=== PATIENT | male | born 1960 | race African-American/Black ===

== ENCOUNTER → 2017-03-16 | Day surgery (SDC) | payer MEDICARE, MEDICAID ==
[~2017-03-16] MED LIST: DOCU100C33 PO; HEPARIN 1,000 UNITS/ML, 10ML ONE; HYDROCORTISONE28 G1 PR; IBUP200T48 PO; PROTAMINE SULFATE 10 MG/ML, 5ML ONE; [UNRECOGNIZED DRUG - REMARK]
== END ==
LOC: OUT 12:12
PROVIDERS: ATTEND Surgery Vascular Surgery
DX: Z02.9 Encounter for administrative examinations, unspecified (principal)
CPT/HCPCS: J1644; J2720

== ENCOUNTER 2017-05-11 08:28 | Observation (INO) | payer MEDICARE, MEDICAID ==
[~2017-05-11] VITALS: Ht 170.2 cm; Wt 70.7 kg
[~2017-05-11 08:28] MED LIST changes: -IBUP200T48 PO; +IBUP200T49 PO; -PROTAMINE SULFATE 10 MG/ML, 5ML ONE
[2017-05-11] MEDS ORDERED: NILO150C PO (09:34)
[2017-05-11] MEDS ORDERED: cytomel PO (09:34)
[2017-05-11] MEDS ORDERED: prilosec PO (09:34)
[2017-05-11] MEDS ORDERED: CLONIDINE TTS (09:34)
[2017-05-11] MEDS ORDERED: renagel PO (09:34)
[2017-05-11] MEDS ORDERED: METO25TA35 PO (09:34)
[2017-05-11] MEDS ORDERED: OXYC-306 PO (09:34)
[2017-05-11 09:39] VITALS: BP 130/79
[2017-05-11] MEDS: SODIUM CHLORIDE 0.9% 1,000 ML IV SCH ×2 (10:02→22:57)
[2017-05-11] MEDS ORDERED: FENTANYL PF 100 MCG/2ML ONE ×2 (10:54→16:13)
[2017-05-11] MEDS ORDERED: MIDAZOLAM 1 MG/ML, 2ML ONE (10:54)
[2017-05-11] MEDS ORDERED: OXYcodone IR 5MG TABLET PO STA (11:49)
[2017-05-11] MEDS ORDERED: ONDANSETRON 2MG/ML, 2ML IVPush STA (11:49)
[2017-05-11] MEDS ORDERED: ONDANSETRON 2MG/ML, 2ML ONE ×2 (11:53→11:56)
[2017-05-11] MEDS ORDERED: PROPOFOL 10 MG/ML, 20ML ONE (11:56)
[2017-05-11] MEDS ORDERED: DEXAMETHASONE 4 MG/ML, 1ML ONE (11:56)
[2017-05-11] MEDS ORDERED: CEFAZOLIN 1,000 MG ONE (11:56)
[2017-05-11] MEDS ORDERED: ALBUTEROL/IPRATROPIUM 2.5MG/0.5MG, 3 ML NPPB PRN (15:00)
[2017-05-11] MEDS ORDERED: PROMETHAZINE 25 MG/ML, 1ML IV PRN (15:00)
[2017-05-11] MEDS ORDERED: ACETAMINOPHEN 325 MG TABLET PO PRN (15:00)
[2017-05-11] MEDS ORDERED: MEPERIDINE/PF 25MG/0.5ML IVPush PRN (15:00)
[2017-05-11] MEDS ORDERED: ONDANSETRON 2MG/ML, 2ML IVPush PRN (15:00)
[2017-05-11] MEDS ORDERED: OXYcodone 5 MG/5 ML ORAL.SOL UDC PO PRN (15:00)
[2017-05-11] MEDS ORDERED: hydrALAzine 20 MG/ML, 1ML IV PRN (15:00)
[2017-05-11] MEDS ORDERED: HYDROmorphone 1 MG/ML, 1ML IV PRN (15:00)
[2017-05-11] MEDS ORDERED: METOCLOPRAMIDE 5 MG/ML, 2ML IV PRN (15:00)
[2017-05-11] MEDS ORDERED: MIDAZOLAM 1 MG/ML, 2ML IV PRN (15:00)
[2017-05-11] MEDS ORDERED: LABETALOL 5MG/ML, 20ML IV PRN (15:00)
[2017-05-11] MEDS ORDERED: FENTANYL PF 100 MCG/2ML IV PRN (15:00)
[2017-05-11] MEDS ORDERED: DIAZEPAM 5 MG/ML, 2ML IVPush PRN (15:00)
[2017-05-11] MEDS ORDERED: hydrALAzine 20 MG/ML, 1ML ONE ×2 (15:41→18:08)
[2017-05-11] MEDS ORDERED: ACETAMINOPHEN 650 MG/20.3 ML UDC ONE (15:51)
[2017-05-11] MEDS ORDERED: OXYcodone 5 MG/5 ML ORAL.SOL UDC ONE ×2 (15:52→16:53)
[2017-05-11] MEDS ORDERED: PROTAMINE SULFATE 10 MG/ML, 5ML IVPush STA (18:05)
[2017-05-11] MEDS ORDERED: LABETALOL 5MG/ML, 20ML IVPush STA (18:21)
[2017-05-11] MEDS ORDERED: LABETALOL 5MG/ML, 20ML ONE (18:23)
[2017-05-11] MEDS ORDERED: hydrALAzine 20 MG/ML, 1ML IV ONE ×2 (18:30→21:30)
[2017-05-11] MEDS ORDERED: PROTAMINE SULFATE IV ONE (18:30)
[2017-05-11] MEDS ORDERED: SODIUM CHLORIDE 0.9% IV ONE (18:30)
[2017-05-11] MEDS ORDERED: morphine SULFATE 10 MG/ML, 1ML IVPush PRN (20:00)
[2017-05-11] MEDS ORDERED: morphine SULFATE 10 MG/ML, 1ML IVPush ONE (20:00)
[2017-05-11] MEDS ORDERED: DIPHENHYDRAMINE 50 MG/ML, 1ML IVPush ONE (21:30)
[2017-05-11 21:50] VITALS: BP 205/99
[2017-05-11 22:41] VITALS: BP 178/87
[2017-05-11 23:18] LABS: FREE T4 (FREE THYROXINE) 0.87 ng/dL (0.76-1.46); THYROID STIMULATING HORMONE 2.34 mIU/L (0.358-3.740)
[2017-05-12] MEDS ORDERED: SEVELAMER 800MG TABLET PO PRN (02:00)
[2017-05-12] MEDS: METOPROLOL TARTRATE 25 MG TABLET PO SCH ×2 (02:33→07:31)
[2017-05-12] MEDS ORDERED: DIPHENHYDRAMINE 50 MG/ML, 1ML IVPush ONE (03:00)
[2017-05-12 03:06] VITALS: BP 209/87
[2017-05-12] MEDS: hydrALAzine 20 MG/ML, 1ML IV PRN ×2 (03:08→07:31)
[2017-05-12] MEDS: CALCIUM CARBONATE 500 MG TAB.CHEW PO PRN ×2 (03:18→06:35)
[2017-05-12 03:42] VITALS: BP 209/93
[2017-05-12 04:11] VITALS: BP 185/87
[2017-05-12 05:24] LABS: CALCIUM 8.5 mg/dL (8.5-10.1); CHLORIDE 103 mmol/L (98-107)
[2017-05-12 05:29] LABS: ALANINE AMINOTRANSFERASE 13 U/L (12-78); ALBUMIN 3.5 g/dL (3.4-5.0); ALKALINE PHOSPHATASE 151 U/L (45-117); ANION GAP 11 mmol/L (5-15); BILIRUBIN,TOTAL 0.9 mg/dL (0.2-1.0)
[2017-05-12 05:40] LABS: MEAN CORPUSCULAR HGB CONC 32.8 g/dL (33.2-36.2); MEAN CORPUSCULAR VOLUME 97.6 fL (81-97); MEAN PLATELET VOLUME 9.5 fL (7.4-10.4); PLATELET COUNT 251 x10^3/uL (130-400); RED BLOOD COUNT 3.57 x10^6/uL (4.38-5.82)
[2017-05-12 06:03] LABS: BASOPHILS % (AUTO) 1 % (0-1); EOSINOPHILS % (AUTO) 0 % (1-7); LYMPHOCYTES # (AUTO) 0.98 x10^3/uL (1-3.4); LYMPHOCYTES % (AUTO) 9 % (22-44); MD SCAN; MONOCYTES # (AUTO) 0.67 x10^3/uL (0.2-0.8); MONOCYTES % (AUTO) 6 % (2-9); NEUTROPHILS # (AUTO) 8.74 x10^3/uL (1.8-6.8); NEUTROPHILS % (AUTO) 83 % (42-75)
[2017-05-12] MEDS ORDERED: NILOTINIB HCL 150 MG PO SCH (07:00)
[2017-05-12 07:04] VITALS: BP 218/82
[2017-05-12] MEDS ORDERED: OMEPRAZOLE 20 MG CAPSULE.DR PO SCH (07:30)
[2017-05-12] MEDS: SEVELAMER 800MG TABLET PO SCH ×2 (07:32→11:25)
[2017-05-12] MEDS ORDERED: METOPROLOL TARTRATE 25 MG TABLET PO SCH (09:00)
[2017-05-12] MEDS ORDERED: LABETALOL 5MG/ML, 20ML IVPush PRN (09:30)
[2017-05-12] MEDS ORDERED: LABE200T3 PO (09:54)
[2017-05-12] MEDS ORDERED: BUDE10.22 INH (09:55)
[2017-05-12] MEDS ORDERED: AMLO10TA4 PO ×2 (09:56→12:38)
[2017-05-12] MEDS ORDERED: LABETALOL 100 MG TABLET ONE (10:23)
[2017-05-12 10:28] VITALS: BP 149/74
[2017-05-12] MEDS ORDERED: AMLODIPINE 5 MG TABLET PO SCH (10:30)
[2017-05-12] MEDS ORDERED: cloniDINE 0.1MG PATCH TD SCH (10:30)
[2017-05-12] MEDS ORDERED: LABETALOL 200 MG TABLET PO SCH (10:30)
[2017-05-12 14:30] VITALS: BP 148/76
== END 2017-05-12 14:35 | disposition home or self-care (01) ==
LOC: OUT 08:28 → 4NOR 19:02 → OUT 21:28 → 4NOR 21:29 → DCLOUNGE 05-12 14:32
PROVIDERS: ADMIT Surgery Vascular Surgery; ATTEND Surgery Vascular Surgery
DX: N19 Unspecified kidney failure (principal); I12.0 Hypertensive chronic kidney disease with stage 5 chronic kidney disease or end stage renal disease; N18.6 End stage renal disease; K21.9 Gastro-esophageal reflux disease without esophagitis; E03.9 Hypothyroidism, unspecified; F40.240 Claustrophobia; H40.9 Unspecified glaucoma; F41.9 Anxiety disorder, unspecified; Z99.2 Dependence on renal dialysis; Z82.3 Family history of stroke; Z82.49 Family history of ischemic heart disease and other diseases of the circulatory system; Z83.3 Family history of diabetes mellitus
CPT/HCPCS: 36415; 36818; 80047; 80053; 84439; 84443; 84481; 85025; 96374; 96375; 96376; G0378; J0360; J0690; J1100; J1200; J1644; J2250; J2270; J2405; J2704; J2720; J3010; J7030

== ENCOUNTER 2017-05-17 04:37 | Inpatient (IN) | payer MEDICARE, MEDICAID ==
[~2017-05-17] VITALS: Ht 170.2 cm; Wt 73.8 kg
[~2017-05-17 04:37] MED LIST changes: +AMLO10TA4 PO; +BUDE10.22 INH; +CLONIDINE TTS; -HEPARIN 1,000 UNITS/ML, 10ML ONE; +LABE200T3 PO; +METO25TA35 PO; +NILO150C PO; +OXYC-306 PO; +cytomel PO; +prilosec PO; +renagel PO
[2017-05-17] MEDS ORDERED: HALOPERIDOL 5 MG/ML ONE (05:16)
[2017-05-17] MEDS ORDERED: LORazepam 2 MG/ML, 1ML ONE (05:16)
[2017-05-17] MEDS ORDERED: LORazepam 2 MG/ML, 1ML IVPush ONE (05:30)
[2017-05-17] MEDS ORDERED: HALOPERIDOL 5 MG/ML IM ONE (05:30)
[2017-05-17] MEDS ORDERED: SODIUM CHLORIDE FLUSH 10ML SYR IVF ONE (05:30)
[2017-05-17] MEDS ORDERED: MORPHINE SULFATE 4 MG/ML, 1ML ONE ×2 (05:37→08:38)
[2017-05-17] MEDS: MORPHINE SULFATE 4 MG/ML, 1ML IVPush ONE ×2 (05:40→05:43)
[2017-05-17 06:01] LABS: MEAN CORPUSCULAR HEMOGLOBIN 32.4 pg (27.5-34.5); MEAN CORPUSCULAR HGB CONC 32.9 g/dL (33.2-36.2); MEAN CORPUSCULAR VOLUME 98.6 fL (81-97); MEAN PLATELET VOLUME 8.9 fL (7.4-10.4); PLATELET COUNT 216 x10^3/uL (130-400); RED BLOOD COUNT 3.08 x10^6/uL (4.38-5.82); RED CELL DISTRIBUTION WIDTH 20.6 % (9.4-14.8)
[2017-05-17] MEDS ORDERED: hydrALAzine 20 MG/ML, 1ML ONE ×2 (06:05→06:59)
[2017-05-17 06:07] LABS: INTERNATIONAL NORMALIZED RATIO 1.06 (0.93-1.1); PROTHROMBIN TIME 10.9 Seconds (9.6-11.5)
[2017-05-17] MEDS: hydrALAzine 20 MG/ML, 1ML IV ONE ×2 (06:08→07:02)
[2017-05-17 06:10] LABS: ANION GAP 10 mmol/L (5-15); CALCIUM 8.7 mg/dL (8.5-10.1); CHLORIDE 104 mmol/L (98-107)
[2017-05-17 06:30] LABS: TROPONIN I 0.103 ng/mL (0.000-0.045)
[2017-05-17] MEDS ORDERED: hydrALAzine 20 MG/ML, 1ML IV ONE ×2 (06:30→11:00)
[2017-05-17 06:31] LABS: BASOPHILS # (AUTO) 0.19 x10^3/uL (0-0.1); BASOPHILS % (AUTO) 2 % (0-1); EOSINOPHILS # (AUTO) 0.18 x10^3/uL (0-0.4); EOSINOPHILS % (AUTO) 2 % (1-7); LYMPHOCYTES # (AUTO) 0.83 x10^3/uL (1-3.4); LYMPHOCYTES % (AUTO) 7 % (22-44); MD SCAN; MONOCYTES # (AUTO) 0.59 x10^3/uL (0.2-0.8); MONOCYTES % (AUTO) 5 % (2-9); NEUTROPHILS # (AUTO) 10.13 x10^3/uL (1.8-6.8); NEUTROPHILS % (AUTO) 85 % (42-75)
[2017-05-17] MEDS ORDERED: LABETALOL 5MG/ML, 20ML IVPush ONE (07:30)
[2017-05-17] MEDS ORDERED: LABETALOL 5MG/ML, 20ML ONE (07:33)
[2017-05-17] MEDS ORDERED: CLEVIDIPINE 50 ML IV PRN (08:30)
[2017-05-17] MEDS ORDERED: HYDROmorphone 2 MG/ML, 1ML ONE (09:09)
[2017-05-17] MEDS ORDERED: HYDROmorphone 2 MG/ML, 1ML IVPush PRN (09:30)
[2017-05-17] MEDS ORDERED: HYDROmorphone 1 MG/ML, 1ML IVPush PRN (09:30)
[2017-05-17] MEDS ORDERED: AMPICILLIN/SULBACTAM 3 GM in SODIUM CHLORIDE 0.9% 100 ML IV ONE (09:30)
[2017-05-17] MEDS ORDERED: POLYETHYLENE GLYCOL 17 GM PACKET PO PRN (10:00)
[2017-05-17] MEDS ORDERED: RENAGEL PO SCH (10:00)
[2017-05-17] MEDS ORDERED: OXYcodone/APAP 7.5/325MG TABLET PO PRN (10:00)
[2017-05-17] MEDS ORDERED: TEMAZEPAM 15 MG CAPSULE PO PRN (10:00)
[2017-05-17] MEDS ORDERED: ONDANSETRON 2MG/ML, 2ML IVPush PRN (10:00)
[2017-05-17] MEDS: NILOTINIB HCL 150 MG PO SCH (10:00)
[2017-05-17] MEDS ORDERED: LABETALOL 100 MG TABLET ONE (10:56)
[2017-05-17] MEDS: HEPARIN 5,000 UNITS/ML, 1ML SQ SCH ×2 (11:01→17:41)
[2017-05-17] MEDS: AMLODIPINE 5 MG TABLET PO SCH (11:02)
[2017-05-17] MEDS: LABETALOL 200 MG TABLET PO SCH ×2 (11:02→20:57)
[2017-05-17 11:15] VITALS: BP 227/84
[2017-05-17] MEDS ORDERED: RENAGEL MC SCH (11:30)
[2017-05-17] MEDS: FLUTICASONE/VILANTEROL 100-25MCG/INH INH SCH (12:38)
[2017-05-17] MEDS: SEVELAMER 800MG TABLET PO SCH ×2 (12:38→16:38)
[2017-05-17] MEDS: ACETAMINOPHEN 325 MG TABLET PO PRN ×2 (15:05→19:11)
[2017-05-17] MEDS: DOXAZOSIN 2MG TABLET PO SCH (15:06)
[2017-05-17] MEDS: CALCIUM CARBONATE 500 MG TAB.CHEW PO PRN ×2 (16:38→19:11)
[2017-05-17] MEDS: hydrALAzine 20 MG/ML, 1ML IV PRN ×2 (16:38→19:11)
[2017-05-17] MEDS: ENALAPRILAT 1.25 MG/ML, 2ML IV PRN ×2 (18:22→22:52)
[2017-05-18] MEDS: hydrALAzine 20 MG/ML, 1ML IV PRN ×2 (00:11→04:08)
[2017-05-18] MEDS: HEPARIN 5,000 UNITS/ML, 1ML SQ SCH ×3 (02:30→19:30)
[2017-05-18] MEDS: ACETAMINOPHEN 325 MG TABLET PO PRN ×3 (02:30→19:27)
[2017-05-18] MEDS: CALCIUM CARBONATE 500 MG TAB.CHEW PO PRN ×3 (02:33→19:26)
[2017-05-18 04:36] VITALS: BP 198/78
[2017-05-18] MEDS: ENALAPRILAT 1.25 MG/ML, 2ML IV PRN (05:05)
[2017-05-18 05:07] LABS: CHLORIDE 103 mmol/L (98-107)
[2017-05-18 05:15] LABS: ALBUMIN 3.4 g/dL (3.4-5.0); ALKALINE PHOSPHATASE 132 U/L (45-117); ANION GAP 12 mmol/L (5-15); CALCIUM 8.5 mg/dL (8.5-10.1); MEAN CORPUSCULAR HEMOGLOBIN 32.1 pg (27.5-34.5); MEAN CORPUSCULAR HGB CONC 32.9 g/dL (33.2-36.2); MEAN CORPUSCULAR VOLUME 97.7 fL (81-97); MEAN PLATELET VOLUME 8.8 fL (7.4-10.4); PLATELET COUNT 209 x10^3/uL (130-400); RED BLOOD COUNT 3.14 x10^6/uL (4.38-5.82); RED CELL DISTRIBUTION WIDTH 20.8 % (9.4-14.8); TOTAL PROTEIN 6.7 g/dL (6.4-8.2)
[2017-05-18 05:18] LABS: ALANINE AMINOTRANSFERASE < 6 U/L (12-78)
[2017-05-18 05:45] LABS: BASOPHILS # (AUTO) 0.12 x10^3/uL (0-0.1); BASOPHILS % (AUTO) 1 % (0-1); EOSINOPHILS # (AUTO) 0.06 x10^3/uL (0-0.4); EOSINOPHILS % (AUTO) 1 % (1-7); LYMPHOCYTES # (AUTO) 0.87 x10^3/uL (1-3.4); LYMPHOCYTES % (AUTO) 10 % (22-44); MD SCAN; MONOCYTES # (AUTO) 0.64 x10^3/uL (0.2-0.8); MONOCYTES % (AUTO) 7 % (2-9); NEUTROPHILS # (AUTO) 7.09 x10^3/uL (1.8-6.8); NEUTROPHILS % (AUTO) 81 % (42-75)
[2017-05-18] MEDS: SEVELAMER 800MG TABLET PO SCH ×3 (08:24→18:23)
[2017-05-18] MEDS: SENNA/DOCUSATE TABLET PO SCH (10:24)
[2017-05-18] MEDS: AMLODIPINE 5 MG TABLET PO SCH (10:24)
[2017-05-18] MEDS: DOXAZOSIN 2MG TABLET PO SCH (10:25)
[2017-05-18] MEDS: LABETALOL 200 MG TABLET PO SCH ×2 (10:25→19:26)
[2017-05-18] MEDS ORDERED: KETOROLAC 30 MG/1 ML IM PRN (11:00)
[2017-05-18] MEDS: FLUTICASONE/VILANTEROL 100-25MCG/INH INH SCH (12:29)
[2017-05-18] MEDS: NILOTINIB HCL 150 MG PO SCH (19:26)
[2017-05-19 01:00] VITALS: BP 143/60
[2017-05-19] MEDS: SEVELAMER 800MG TABLET PO SCH ×2 (01:43→16:38)
[2017-05-19] MEDS: CALCIUM CARBONATE 500 MG TAB.CHEW PO PRN ×2 (03:35→13:50)
[2017-05-19] MEDS: HEPARIN 5,000 UNITS/ML, 1ML SQ SCH ×2 (03:38→12:00)
[2017-05-19 07:05] LABS: BASOPHILS # (AUTO) 0.11 x10^3/uL (0-0.1); BASOPHILS % (AUTO) 2 % (0-1); EOSINOPHILS # (AUTO) 0.09 x10^3/uL (0-0.4); EOSINOPHILS % (AUTO) 1 % (1-7); LYMPHOCYTES % (AUTO) 15 % (22-44); MD NO; MEAN CORPUSCULAR HEMOGLOBIN 32.8 pg (27.5-34.5); MEAN CORPUSCULAR HGB CONC 33.5 g/dL (33.2-36.2); MEAN CORPUSCULAR VOLUME 97.9 fL (81-97); MEAN PLATELET VOLUME 8.6 fL (7.4-10.4); MONOCYTES # (AUTO) 0.72 x10^3/uL (0.2-0.8); MONOCYTES % (AUTO) 11 % (2-9); NEUTROPHILS # (AUTO) 4.94 x10^3/uL (1.8-6.8); NEUTROPHILS % (AUTO) 72 % (42-75); PLATELET COUNT 188 x10^3/uL (130-400); RED BLOOD COUNT 2.86 x10^6/uL (4.38-5.82); RED CELL DISTRIBUTION WIDTH 21.1 % (9.4-14.8)
[2017-05-19 07:17] LABS: % IRON SATURATION 35 % (20-55); ALBUMIN 3.1 g/dL (3.4-5.0); ANION GAP 8 mmol/L (5-15); CALCIUM 8.3 mg/dL (8.5-10.1); CHLORIDE 98 mmol/L (98-107); CREATININE 9.82 mg/dL (0.7-1.3); IRON LEVEL 62 mcg/dL (65-175); TOTAL IRON BINDING CAPACITY 177 mcg/dL (250-450)
[2017-05-19 08:15] VITALS: BP 200/94
[2017-05-19] MEDS: NILOTINIB HCL 150 MG PO SCH (09:00)
[2017-05-19] MEDS: AMLODIPINE 5 MG TABLET PO SCH (09:16)
[2017-05-19] MEDS: LABETALOL 200 MG TABLET PO SCH (09:16)
[2017-05-19] MEDS: FLUTICASONE/VILANTEROL 100-25MCG/INH INH SCH (09:16)
[2017-05-19] MEDS: DOXAZOSIN 2MG TABLET PO SCH (09:17)
[2017-05-19] MEDS: SENNA/DOCUSATE TABLET PO SCH (09:17)
[2017-05-19 10:05] VITALS: BP 173/79
[2017-05-19 13:10] VITALS: BP 152/72
[2017-05-19] MEDS ORDERED: DOXA2TAB9 PO (16:20)
[2017-05-19] MEDS ORDERED: HYDR-3342 PO (16:20)
== END 2017-05-19 18:08 | disposition home or self-care (01) | DRG 871 ==
LOC: ED 06:31 → EDIP 09:14 → CCU 10:45 → 4WST 05-19 08:06
PROVIDERS: ADMIT Internal Medicine; ATTEND Internal Medicine
PROC: 02HV33Z Insertion of Infusion Device into Superior Vena Cava, Percutaneous Approach (ICD-10-PCS; 2017-05-17)
PROC: B548ZZA Ultrasonography of Superior Vena Cava, Guidance (ICD-10-PCS; 2017-05-17)
PROC: 5A1D70Z Performance of Urinary Filtration, Intermittent, Less than 6 Hours Per Day (ICD-10-PCS; principal; 2017-05-19)
DX: A41.9 Sepsis, unspecified organism (principal); N18.6 End stage renal disease; C92.10 Chronic myeloid leukemia, BCR/ABL-positive, not having achieved remission; I12.0 Hypertensive chronic kidney disease with stage 5 chronic kidney disease or end stage renal disease; E87.70 Fluid overload, unspecified; L03.113 Cellulitis of right upper limb; D63.1 Anemia in chronic kidney disease; E03.9 Hypothyroidism, unspecified; F40.240 Claustrophobia; H40.9 Unspecified glaucoma; J44.9 Chronic obstructive pulmonary disease, unspecified; I51.7 Cardiomegaly; K21.9 Gastro-esophageal reflux disease without esophagitis; N25.0 Renal osteodystrophy; Z82.3 Family history of stroke; Z82.49 Family history of ischemic heart disease and other diseases of the circulatory system; Z91.14 Patient's other noncompliance with medication regimen; Z83.3 Family history of diabetes mellitus; Z99.2 Dependence on renal dialysis; Z91.19 Patient's noncompliance with other medical treatment and regimen
CPT/HCPCS: 36415; 71045; 80048; 80053; 80069; 80344; 82040; 82306; 82728; 83540; 83550; 83605; 83735; 83880; 83970; 84100; 84443; 84484; 85025; 85610; 86705; 86706; 87040; 87081; 87340; 93005; 93926; 93990; J0295; J1170; J1644; J0360; J1630; J2060; J7050

== ENCOUNTER 2017-10-14 23:44 | Emergency (ER) | payer MEDICARE, MEDICAID ==
[~2017-10-14] VITALS: Ht 170.2 cm; Wt 70.0 kg
[~2017-10-14 23:44] MED LIST changes: +DOXA2TAB9 PO; +HYDR-3342 PO
[2017-10-15 00:27] LABS: BASOPHILS # (AUTO) 0.19 x10^3/uL (0-0.1); BASOPHILS % (AUTO) 3 % (0-1); EOSINOPHILS # (AUTO) 0.17 x10^3/uL (0-0.4); EOSINOPHILS % (AUTO) 3 % (1-7); LYMPHOCYTES # (AUTO) 0.78 x10^3/uL (1-3.4); LYMPHOCYTES % (AUTO) 11 % (22-44); MD NO; MEAN CORPUSCULAR HGB CONC 32.9 g/dL (33.2-36.2); MEAN CORPUSCULAR VOLUME 97.3 fL (81-97); MEAN PLATELET VOLUME 9.4 fL (7.4-10.4); MONOCYTES # (AUTO) 0.57 x10^3/uL (0.2-0.8); MONOCYTES % (AUTO) 8 % (2-9); NEUTROPHILS # (AUTO) 5.14 x10^3/uL (1.8-6.8); NEUTROPHILS % (AUTO) 75 % (42-75); PLATELET COUNT 214 x10^3/uL (130-400); RED BLOOD COUNT 3.61 x10^6/uL (4.38-5.82); RED CELL DISTRIBUTION WIDTH 15.5 % (9.4-14.8)
[2017-10-15 00:31] LABS: ALBUMIN 3.3 g/dL (3.4-5.0); ANION GAP 7 mmol/L (5-15); CALCIUM 8.2 mg/dL (8.5-10.1); CHLORIDE 103 mmol/L (98-107); CREATININE 6.81 mg/dL (0.7-1.3)
[2017-10-15 00:48] VITALS: BP 126/62
== END 2017-10-15 01:24 | disposition home or self-care (01) ==
LOC: ED 23:59
DX: R10.33 Periumbilical pain (principal); R10.30 Lower abdominal pain, unspecified; R10.32 Left lower quadrant pain; I10 Essential (primary) hypertension
CPT/HCPCS: 36415; 80048; 82040; 85025; 99281; 99284

== ENCOUNTER → 2020-03-23 | Outpatient (CLI) | payer MEDICARE, MEDICAID ==
[~2020-03-23] MED LIST changes: -LABE200T3 PO; +LABE200T6 PO
== END | disposition home or self-care (01) ==
LOC: STAR 13:02
PROVIDERS: ATTEND Anesthesiology
DX: Z20.828 Contact with and (suspected) exposure to other viral communicable diseases (principal)
CPT/HCPCS: 87635

== ENCOUNTER 2020-03-28 14:28 | Day surgery (SDC) | payer MEDICARE, MEDICAID ==
[~2020-03-28] VITALS: Ht 170.2 cm; Wt 77.8 kg
[2020-03-28 15:08] VITALS: BP 155/79
[2020-03-28] MEDS ORDERED: CHLORHEXIDINE 15 ML UDC MM ONE (15:30)
[2020-03-28] MEDS ORDERED: LACTATED RINGERS 1,000 ML IV SCH (15:30)
[2020-03-28 16:25] LABS: MEAN CORPUSCULAR HEMOGLOBIN 28.4 pg (27.5-34.5); MEAN CORPUSCULAR HGB CONC 30.7 g/dL (33.2-36.2); MEAN PLATELET VOLUME 9.6 fL (7.4-10.4); PLATELET COUNT 199 x10^3/uL (130-400); RED BLOOD COUNT 2.61 x10^6/uL (4.38-5.82); RED CELL DISTRIBUTION WIDTH 19.5 % (9.4-14.8)
[2020-03-28 16:33] LABS: ALANINE AMINOTRANSFERASE 30 U/L (12-78); ALBUMIN 3.7 g/dL (3.4-5.0); ANION GAP 7 mmol/L (5-15); CALCIUM 7.5 mg/dL (8.5-10.1); CHLORIDE 103 mmol/L (98-107); CREATININE 8.97 mg/dL (0.7-1.3)
[2020-03-28 16:34] LABS: MD YES
[2020-03-28 16:35] LABS: ALKALINE PHOSPHATASE 119 U/L (45-117); BILIRUBIN,TOTAL 1.3 mg/dL (0.2-1.0); TOTAL PROTEIN 7.3 g/dL (6.4-8.2)
[2020-03-28] MEDS ORDERED: BUPIVACAINE/PF 0.25% ONE (17:07)
[2020-03-28] MEDS ORDERED: PROPOFOL 10 MG/ML, 20ML ONE (17:46)
[2020-03-28] MEDS ORDERED: CEFAZOLIN 1,000 MG ONE (17:46)
[2020-03-28] MEDS ORDERED: SUCCINYLCHOLINE 20 MG/ML, 10ML ONE (17:46)
[2020-03-28 17:54] LABS: BAND#(MANUAL) 6.04 x10^3/uL; BANDS%(MANUAL) 10 % (0-7); BASOS#(MANUAL) 5.44 x10^3/uL (0-0.1); BASOS% (MANUAL) 9 % (0-1); EOS#(MANUAL) 2.42 x10^3/uL (0.0-0.4); EOS% (MANUAL) 4 % (1-7); LYMPH#(MANUAL) 6.04 x10^3/uL (1-3.4); LYMPHS% (MANUAL) 10 % (22-44); METAMYELOCYTES# (MANUAL) 1.21 x10^3/uL (0-0); METAMYELOCYTES% (MANUAL) 2 % (0-1); MONOS#(MANUAL) 3.62 x10^3/uL (0.3-2.7); MONOS% (MANUAL) 6 % (2-9); SEG#(MANUAL) 34.43 x10^3/uL (1.8-6.8); SEGS% (MANUAL) 57 % (42-75)
[2020-03-28 17:55] LABS: OTHER CELLS # (MANUAL) 1.21 x10^3/uL (0-0); OTHER CELLS % (MANUAL) 2 % (0-0)
[2020-03-28] MEDS ORDERED: BUPIVACAINE 0.25% INFIL ONE (18:15)
[2020-03-28] MEDS ORDERED: DIAZEPAM 5 MG/ML, 2ML IV PRN ×2 (18:30)
[2020-03-28] MEDS ORDERED: OXYcodone 5 MG/5 ML ORAL.SOL UDC PO PRN (18:30)
[2020-03-28] MEDS ORDERED: PROMETHAZINE 25 MG/ML, 1ML IV PRN (18:30)
[2020-03-28] MEDS ORDERED: hydrALAzine 20 MG/ML, 1ML IV PRN (18:30)
[2020-03-28] MEDS ORDERED: LABETALOL 5MG/ML, 20ML IV PRN (18:30)
[2020-03-28] MEDS ORDERED: MEPERIDINE/PF 25MG/0.5ML IVPush PRN (18:30)
[2020-03-28] MEDS ORDERED: HYDROmorphone 1 MG/ML, 1ML INJ IV PRN (18:30)
[2020-03-28] MEDS ORDERED: ALBUTEROL SULFATE 2.5 MG/3 ML NPPB PRN (18:30)
[2020-03-28] MEDS ORDERED: KETOROLAC 30 MG/1 ML IV PRN ×2 (18:30)
[2020-03-28] MEDS ORDERED: ONDANSETRON 2MG/ML, 2ML IVPush PRN (18:30)
[2020-03-28] MEDS ORDERED: PROTAMINE SULFATE 10 MG/ML, 5ML ONE (19:01)
[2020-03-28] MEDS ORDERED: FENTANYL PF 100 MCG/2ML ONE (19:53)
[2020-03-28] MEDS ORDERED: OXYcodone 5 MG/5 ML ORAL.SOL UDC ONE (19:53)
[2020-03-28] MEDS: FENTANYL PF 100 MCG/2ML IV PRN ×3 (20:00→20:19)
[2020-03-28 20:04] LABS: ANISOCYTOSIS 1+; POLYCHROMASIA 1+
[2020-03-28 20:05] LABS: OVALOCYTES 1+
[2020-03-28 20:06] LABS: TEAR DROPS 1+
[2020-03-28 20:07] LABS: BASOPHILLIC STIPPLING 1+
[2020-03-28 20:08] LABS: <PLATELET ESTIMATE> ADEQUATE; <PLT MORPHOLOGY> NORMAL PLT MORPH
== END 2020-03-28 23:15 | disposition home or self-care (01) ==
LOC: OR 14:28
PROVIDERS: ATTEND Surgery
DX: I77.0 Arteriovenous fistula, acquired (principal); I12.0 Hypertensive chronic kidney disease with stage 5 chronic kidney disease or end stage renal disease; N18.6 End stage renal disease; J44.9 Chronic obstructive pulmonary disease, unspecified; Z79.891 Long term (current) use of opiate analgesic; Z79.899 Other long term (current) drug therapy; Z88.8 Allergy status to other drugs, medicaments and biological substances; Z99.81 Dependence on supplemental oxygen; Z82.49 Family history of ischemic heart disease and other diseases of the circulatory system
CPT/HCPCS: 36415; 36832; 80053; 85025; 93005; J0330; J0690; J2704; J2720; J3010

== ENCOUNTER 2020-04-01 08:53 | Emergency (ER) | payer MEDICARE, MEDICAID ==
[~2020-04-01] VITALS: Ht 170.2 cm; Wt 77.2 kg
[2020-04-01] MEDS ORDERED: MICROFIBRILLAR COLLAGEN 1 GM TP ONE ×2 (09:13→09:30)
[2020-04-01 09:44] VITALS: BP 152/80
== END 2020-04-01 09:48 | disposition home or self-care (01) ==
LOC: ED 09:31
DX: I97.89 Other postprocedural complications and disorders of the circulatory system, not elsewhere classified (principal); I10 Essential (primary) hypertension
CPT/HCPCS: 99281

== ENCOUNTER 2020-04-01 18:06 | Emergency (ER) | payer MEDICARE, MEDICAID ==
[~2020-04-01] VITALS: Ht 170.2 cm; Wt 73.3 kg
[2020-04-01] MEDS ORDERED: ONDANSETRON ODT 4 MG ONE (18:36)
[2020-04-01] MEDS ORDERED: MICROFIBRILLAR COLLAGEN 1 GM TP ONE (18:36)
[2020-04-01 18:52] LABS: MEAN CORPUSCULAR HEMOGLOBIN 29.5 pg (27.5-34.5); MEAN CORPUSCULAR HGB CONC 32.3 g/dL (33.2-36.2); PLATELET COUNT 185 x10^3/uL (130-400); RED BLOOD COUNT 2.74 x10^6/uL (4.38-5.82); RED CELL DISTRIBUTION WIDTH 19.5 % (9.4-14.8)
[2020-04-01 18:53] LABS: MD YES
[2020-04-01 18:58] LABS: INTERNATIONAL NORMALIZED RATIO 1.11 (0.93-1.1); PROTHROMBIN TIME 11.8 Seconds (9.6-11.5)
[2020-04-01 18:59] LABS: ALBUMIN 3.5 g/dL (3.4-5.0); ANION GAP 6 mmol/L (5-15); CALCIUM 6.4 mg/dL (8.5-10.1); CHLORIDE 101 mmol/L (98-107)
[2020-04-01] MEDS ORDERED: MICROFIBRILLAR COLLAGEN 0.5GM/PACK TP ONE (19:00)
[2020-04-01 19:34] LABS: BAND#(MANUAL) 5.81 x10^3/uL; BANDS%(MANUAL) 16 % (0-7); BASOS#(MANUAL) 2.54 x10^3/uL (0-0.1); BASOS% (MANUAL) 7 % (0-1); LYMPH#(MANUAL) 1.45 x10^3/uL (1-3.4); LYMPHS% (MANUAL) 4 % (22-44); METAMYELOCYTES# (MANUAL) 1.09 x10^3/uL (0-0); METAMYELOCYTES% (MANUAL) 3 % (0-1); MONOS#(MANUAL) 2.18 x10^3/uL (0.3-2.7); MONOS% (MANUAL) 6 % (2-9); MYELOCYTES# (MANUAL) 2.54 x10^3/uL (0-0); MYELOCYTES% (MANUAL) 7 % (0-0); SEGS% (MANUAL) 54 % (42-75)
[2020-04-01 19:39] LABS: BLASTS # (MANUAL) 1.09 x10^3/uL (0-0); BLASTS % (MANUAL) 3 % (0-0)
[2020-04-01 19:40] LABS: OVALOCYTES 1+; POLYCHROMASIA 1+
[2020-04-01 19:41] VITALS: BP 163/91
[2020-04-01 19:41] LABS: <PLATELET ESTIMATE> ADEQUATE; <PLT MORPHOLOGY> NORMAL PLT MORPH; TEAR DROPS 1+
--- NOTE | 2020-04-01 19:42 | NUR ---
Patient given discharge instructions and they have confirmed that they understand the instructions. Patient stable and ambulatory with steady gait from ED.
== END 2020-04-01 19:43 | disposition home or self-care (01) ==
LOC: ED 19:30
DX: T82.838A Hemorrhage due to vascular prosthetic devices, implants and grafts, initial encounter (principal); D64.9 Anemia, unspecified; F17.210 Nicotine dependence, cigarettes, uncomplicated; I10 Essential (primary) hypertension
CPT/HCPCS: 36415; 80048; 82040; 85025; 85610; 99283

== ENCOUNTER 2020-04-02 11:49 | Day surgery (SDC) | payer MEDICARE, MEDICAID ==
[~2020-04-02] VITALS: Ht 170.2 cm; Wt 79.5 kg
--- NOTE | 2020-04-02 12:14 | NUR ---
PATIENT WALKED BACK FROM TRIAGE WITH CHIEF C/O BLEEDING LEFT ARM FISTULA. PATIENT HAD FISTULA PLACED BY DR. WEEMS 4 DAYS AGO, SITE HAS BEEN BLEEDING EVER SINCE PLACEMENT. PATIENT WAS HERE YESTERDAY 2X FOR SAME ISSUE. PER PATIENT BLEEDING IS NOT GETTING ANY BETTER. LEFT ARM AND HAND IS SWOLLEN, FISTULA SITE IS WRAPPED IN COBAN, DRIED BLOOD NOTED ON BANDAGE. PATIENT REPORTS PAIN IN FISTULA AREA, NADN, VSS, CALL LIGHT WITHIN REACH.
--- NOTE | 2020-04-02 12:31 | NUR ---
RECEIVED REPORT FROM JEAN GARCIA. PATIENT HAS 10/10 PAIN AT SURGICAL SITE. HIS ARM IS MUCH MORE SWOLLEN THAN IT WAS YESTERDAY WHEN I SAW HIM IN TRIAGE. DR LINDSAY IS WHO DID THE SURGERY. WAITING FOR ER PROVIDER TO ASSESS PATIENT. THE PATIENT IS REQUESTING FOOD BUT I TOLD HIM NOTHING TO EAT OR DRINK UNTIL HE IS SEEN BY THE PROVIDER. THE BANDAGE ON HIS ARM IS ALSO BLOOD STAINED AND PARTIALLY WRAPPED IN COBAN.
[2020-04-02] MEDS ORDERED: DESMOPRESSIN 4 MCG/ML IVPush ONE (13:00)
--- NOTE | 2020-04-02 13:06 | NUR ---
Note pamela in EDM - 04/02/20 at 1315 by SHY PT [facility] [employer]. VSS. NAD. C/O 05/23 CHEST PAIN. DENIES NEED FOR PAIN MEDICATION INTERVENTION AT THIS TIME. WILL CONTINUE TO MONITOR
--- NOTE | 2020-04-02 13:14 | NUR ---
PATIENT IS UPSET THE WE ARE "DOING NOTHING FOR HIM" HE CONTINUALLY ASKS FOR FOOD AND ASKS FAMILY MEMBERS ON THE PHONE TO BRING HIM FOOD. HE HAS BEEN EDUCATED REGARDING HIS NPO STATUS. DR ALEJO OK'D ICE CHIPS WHICH WERE PROVIDED TO THE PATIENT.
[2020-04-02] MEDS ORDERED: SUGAMMADEX 200 MG/2 ML IVPush ONE (13:29)
[2020-04-02] MEDS ORDERED: ROCURONIUM 10 MG/ML,10ML ONE (13:29)
[2020-04-02] MEDS ORDERED: METOPROLOL 1 MG/ML, 5ML ONE (13:29)
[2020-04-02] MEDS ORDERED: DEXAMETHASONE 4 MG/ML, 1ML ONE (13:29)
[2020-04-02] MEDS ORDERED: CEFAZOLIN 1,000 MG ONE ×2 (13:29→19:10)
[2020-04-02] MEDS ORDERED: DESMOPRESSIN 20 MCG in SODIUM CHLORIDE 0.9% 50 ML IVPB ONE (13:30)
[2020-04-02] MEDS ORDERED: HYDROmorphone 2 MG/ML, 1ML IM PRN (15:00)
[2020-04-02] MEDS ORDERED: ONDANSETRON 2MG/ML, 2ML IVPush ONE (15:00)
--- NOTE | 2020-04-02 15:06 | NUR ---
DR LINDSAY -SURGEON AT BEDSIDE FOR EVALUATION. HE IS GOING TO TAKE THE PATIENT BACK TO THE OR FOR A WASHOUT. PATIENT REMAINS NPO. MEDICATED PER EMAR.CALL LIGHT WITHIN REACH. ELEVATED ARM WITH PILLOWS. Addendum: 04/02/20 at 1507 by [email or web address] SON AT BEDSIDE
[2020-04-02] MEDS ORDERED: ONDANSETRON 2MG/ML, 2ML ONE (15:08)
[2020-04-02] MEDS ORDERED: HYDROmorphone 1 MG/ML, 1ML INJ ONE (15:08)
--- NOTE | 2020-04-02 15:41 | NUR ---
COVID SWAB DONE AND WALKED TO LAB - PER REQUEST FROM OR
--- NOTE | 2020-04-02 16:36 | NUR ---
THE PATIENT'S SON TOOK ALL OF HIS JEWELRY HOME WITH HIM. PATIENT UNDRESSED AND BELONGINGS LIST DONE. WAITING TO GO TO OR. HE IS RESTING COMFORTABLY WITH CYCLING VITALS AND CONTINUOUS SPO2.
--- NOTE | 2020-04-02 16:42 | NUR ---
JUST FOUND PATIENTS WATCH IN THE ROOM. PUT IT IN THE BELONGINGS BAG WITH OTHER BELONGINGS
--- NOTE | 2020-04-02 16:44 | NUR ---
REPORT GIVEN TO LAURA GARCIA IN OR
--- NOTE | 2020-04-02 17:49 | NUR ---
[facility] [phone]
[2020-04-02] MEDS ORDERED: BUPIVACAINE/PF-EPI 0.5% 1:200K ONE (18:26)
[2020-04-02] MEDS ORDERED: PROTAMINE SULFATE 10 MG/ML, 5ML ONE (18:27)
[2020-04-02] MEDS ORDERED: HEPARIN 1,000 UNITS/ML, 10ML ONE (18:27)
[2020-04-02] MEDS ORDERED: THROMBIN 5,000 UNIT VIAL TP ONE (18:27)
[2020-04-02] MEDS ORDERED: BUPIVACAINE/PF 0.25% ONE (18:42)
[2020-04-02] MEDS ORDERED: FENTANYL PF 100 MCG/2ML ONE ×2 (19:03→19:04)
[2020-04-02] MEDS ORDERED: PROPOFOL 10 MG/ML, 20ML ONE (19:10)
[2020-04-02] MEDS ORDERED: FENTANYL PF 100 MCG/2ML IV PRN (19:30)
[2020-04-02] MEDS ORDERED: OXYcodone 5 MG/5 ML ORAL.SOL UDC PO PRN (19:30)
[2020-04-02] MEDS ORDERED: LABETALOL 5MG/ML, 20ML IV PRN (19:30)
[2020-04-02] MEDS ORDERED: HYDROmorphone 1 MG/ML, 1ML INJ IVPush PRN (19:30)
[2020-04-02] MEDS ORDERED: ONDANSETRON 2MG/ML, 2ML IVPush PRN (19:30)
[2020-04-02] MEDS ORDERED: hydrALAzine 20 MG/ML, 1ML IV PRN (19:30)
[2020-04-02] MEDS ORDERED: OXYcodone 5 MG/5 ML ORAL.SOL UDC ONE (20:45)
== END 2020-04-02 21:45 | disposition home or self-care (01) ==
LOC: ED 12:40 → UNDOADMIN 16:14 → EDIP 16:14 → ED 18:27 → OUT 20:00
PROVIDERS: ATTEND Surgery
DX: T82.838A Hemorrhage due to vascular prosthetic devices, implants and grafts, initial encounter (principal); Y83.8 Other surgical procedures as the cause of abnormal reaction of the patient, or of later complication, without mention of misadventure at the time of the procedure; I12.0 Hypertensive chronic kidney disease with stage 5 chronic kidney disease or end stage renal disease; N18.6 End stage renal disease; F17.210 Nicotine dependence, cigarettes, uncomplicated; F12.90 Cannabis use, unspecified, uncomplicated; Z99.2 Dependence on renal dialysis; Z88.8 Allergy status to other drugs, medicaments and biological substances; Z79.899 Other long term (current) drug therapy; Z98.890 Other specified postprocedural states; Z85.6 Personal history of leukemia
CPT/HCPCS: 10140; 82962; 87635; 93005; 96365; 96372; 96375; 99285; J0690; J1100; J1170; J1644; J2405; J2597; J2704; J2720; J3010